=== PATIENT | male | born 1995 | race Caucasian/White ===

== ENCOUNTER 2017-12-03 19:16 | Emergency (ER) | payer OTHER ==
--- NOTE | 2017-12-03 19:42 | EDPHY ---
H & P Time Seen by Provider: 12/03/17 19:31 HPI/ROS: Chief complaint. Left knee injury HPI. 22-year-old male presents emergency department with left knee injury. He fell off his skateboard just prior to arrival. He feels he hyper extended his knee. He is able to bear weight but it hurts to walk. No previous injury to the left knee. He also sustained abrasion to his right elbow. Did not his head or lose consciousness. No neck pain. No hip her ankle pain ROS Constitutional. no fever/chills, no weakness Eyes. no problems with vision ENT. no sore throat, no nasal drainage Cardiovascular. no chest pain Respiratory. no shortness of breath, no cough Abdominal. no abdominal pain, no nausea/vomiting, no diarrhea . no problems urinating MS. Left knee pain Skin. no rash Lymph. no swollen glands Neuro. no headache, no dizziness, no difficulty walking or with speech Past Medical/Surgical History: Asthma Social History: Single, nonsmoker, no alcohol Smoking Status: Never smoked Physical Exam: General Appearance: Alert pleasant well-developed male mild distress vital signs stable Eyes: Pupils equal and round no pallor or injection. ENT, Mouth: Mucous membranes are moist. Respiratory: There are no retractions, lungs are clear to auscultation. Cardiovascular: Regular rate and rhythm. Gastrointestinal: Abdomen is soft and nontender, no masses, bowel sounds normal. Neurological: Awake and alert, sensory and motor exams grossly normal. Skin: Warm and dry, no rashes. Musculoskeletal: Neck is supple nontender. Extremities left knee with full range of motion. Tenderness along the patellar tendon. No tenderness over the patella. No medial or lateral joint line tenderness. No instability to stress. Psychiatric: Patient is oriented X 3, there is no agitation. Constitutional: Initial Vital Signs Temperature (C) 37.1 C 12/03/17 19:20 Heart Rate 83 12/03/17 19:20 Respiratory Rate 16 12/03/17 19:20 Blood Pressure 129/70 H 12/03/17 19:20 O2 Sat (%) 95 12/03/17 19:20 O2 Delivery Mode Room Air Allergies/Adverse Reactions: No Known Allergies Allergy (Unverified 12/03/17 19:23) Home Medications: Medication Instructions Recorded Hydrocodone/APAP 5/325 [B[place] 1 each PO Q4-6PRN PRN #7 tab 04/17/18 5/325 (*)] Singulair 12/03/17 Medical Decision Making - Diagnostics Imaging Results: Imaging Impressions Knee X-Ray 12/03/17 19:41 Impression: 1. No acute osseous abnormality seen left knee. If symptoms persist, consider MRI at some point to evaluate for possible meniscal or ligamentous type injury. X-ray of the knee interpreted by me as no fracture dislocation. Patient has an effusion. Procedures: Left knee immobilizer is placed. Post splint application reviewed by me shows good anatomic position and distal motor vascular sensitivity to be intact. The patient has 1 crutch and he is considering whether to rent crutches from [employer] or [employer] or use our crutches. ED Course/Re-evaluation: Re-evaluation at 8:15 p.m.. Patient and I discussed imaging study results, treatment plan, criteria for return importance of follow-up and further evaluation. He expresses understanding and agreement Differential Diagnosis: I considered sprain, fracture, dislocation. No evidence for fracture dislocation.. Possible ligamental injury Departure - Departure Disposition: Home, Routine, Self-Care Clinical Impression: Left knee sprain Qualifiers: Encounter type: initial encounter Involved ligament of knee: unspecified ligament Qualified Code(s): S83.92XA - Sprain of unspecified site of left knee, initial encounter Condition: Good Instructions: Knee Sprain (ED), Knee Immobilizer (ED) Additional Instructions: Ice and elevation next 24 hr. Splint for the next 5-7 days. Crutches until comfortable without. Probably use crutches next 3 days. Ibuprofen 600 mg every 6 hr. Hydrocodone in addition for pain if necessary using 1 pill every 4-6 hours. Return for worsening symptoms. Follow-up with orthopedist in 5-7 days for continuing symptoms Referrals: NONE *PRIMARY CARE P,. [Primary Care Provider] - As per Instructions Juvencio Cloud MD [Medical Doctor] - 5-7 days, if not improved Prescriptions: Hydrocodone/APAP 5/325 [B[place] 5/325 (*)] 1 each PO Q4-6PRN PRN #7 tab PRN Reason: Pain, Moderate
[2017-12-03] MEDS ORDERED: HYDROCOD/APAP 5/325 PREPACK#6 BTL TAKEHOME ONE (20:33)
[2017-12-03 21:04] VITALS: BP 127/72
== END 2017-12-03 21:02 | disposition home or self-care (01) ==
DX: S83.92XA Sprain of unspecified site of left knee, initial encounter (principal); J45.909 Unspecified asthma, uncomplicated; V00.131A Fall from skateboard, initial encounter; Y99.8 Other external cause status; Y93.51 Activity, roller skating (inline) and skateboarding
CPT/HCPCS: L1830